=== PATIENT | female | born 1990 | race Caucasian/White ===

== ENCOUNTER 2018-10-26 22:32 | Emergency (ER) | payer MEDICAID ==
[~2018-10-26] VITALS: Ht 177.8 cm; Wt 65.3 kg
[2018-10-26 22:33] VITALS: BP_SYST 140
[2018-10-26 23:55] VITALS: BP_SYST 140
== END 2018-10-26 23:55 | disposition home or self-care (01) ==
LOC: SED 22:32
DX: L01.00 Impetigo, unspecified (principal); Z88.6 Allergy status to analgesic agent
CPT/HCPCS: 81025; 99283